=== PATIENT | female | born 2000 | race Hispanic/Latino ===

== ENCOUNTER 2025-01-30 05:53 | Emergency (ER) | payer MEDICAID, SELFPAY ==
[2025-01-30] MEDS ORDERED: Ondansetron PF 4 MG/2 ML Vial ONE (06:19)
[2025-01-30] MEDS ORDERED: Acetaminophen 500 MG TAB ONE (06:20)
[2025-01-30 06:22] LABS: #Basophils 0.05 10x3/uL (0.0-0.2); #Eosinophils Less than 0.03 10x3/uL (0.0-0.5); #Monocytes 0.57 10x3/uL (0.0-1.1); #Neutrophils 11.26 10x3/uL (1.5-8.4); %Basophils 0.4 % (0.0-2.0); %Eosinophils 0.1 % (0.0-6.0); %Lymphocytes 15.2 % (18.0-47.0); %Monocytes 4.0 % (0.0-10.0); %Neutrophils 79.7 % (40.0-75.0); Hematocrit 39.3 % (34.9-44.5); Hemoglobin 13.8 g/dL (12.0-15.5); Mean Corpuscular Hemoglobin 31.3 pg (27.0-33.0); Mean Corpuscular Volume 89.1 fL (81.6-98.3); Platelet Count 277 10x3/uL (150-450); Red Blood Cell (RBC) Count 4.41 10x6/uL (3.90-5.03); White Blood Cell (WBC) Count 14.11 10x3/uL (3.5-10.5)
[2025-01-30 06:41] LABS: ALT (SGPT) 279 U/L (Less than 34); AST (SGOT) 115 U/L (11-34); Albumin 5.1 g/dL (3.1-4.5); Alkaline Phosphatase 104 U/L (40-110); Anion Gap 21 mmol/L (10-20); BUN (Urea Nitrogen) 10 mg/dL (7.0-18.7); Bilirubin, Total 0.5 mg/dL (0.3-1.2); Calc. Creatinine Clearance 0 mL/min (70-130); Calcium 9.7 mg/dL (7.8-10.44); Carbon Dioxide 18 mmol/L (22-29); Chloride 105 mmol/L (98-107); Globulin 4.0 g/dL (2.4-3.5); Glucose 191 mg/dL (70-105); Potassium 4.1 mmol/L (3.5-5.1); Sodium 140 mmol/L (136-145)
[2025-01-30 06:50] LABS: BHCG - Serum Negative (NEGATIVE); Pregs Control Background? CLEAR/WHITE (CLR/WHITE); Pregs Control Bar Appear? YES (CONTROL BAR)
[2025-01-30 06:55] LABS: Glucose, Urine (Dipstick) Normal (Negative); Leukocyte Negative (Negative); Protein, Urine (Dipstick) 100 mg/dl (Neg-Trace); Specific Gravity, Urine 1.015 (1.005-1.030)
[2025-01-30 07:09] LABS: Bacteria/HPF 1+ HPF (None Seen); CAUTI Indications for Culture Pelvic or flank pain; RBC/HPF 0-3 HPF (0-3)
[2025-01-30 07:10] LABS: Urine Culture Reflex No No
== END 2025-01-30 07:20 | disposition home or self-care (01) ==
LOC: CSHERS 05:53
DX: R50.9 Fever, unspecified (principal); R11.0 Nausea; E11.9 Type 2 diabetes mellitus without complications; Z79.84 Long term (current) use of oral hypoglycemic drugs
CPT/HCPCS: 71045; 80053; 81001; 84703; 85025; 87428; 93005; 96374; J2405